=== PATIENT | male | born 1990 | race Caucasian/White ===

== ENCOUNTER 2017-04-21 21:53 | Inpatient (IN) | payer OTHER ==
[~2017-04-21] VITALS: Ht 167.6 cm; Wt 119.5 kg
[~2017-04-21 21:53] MED LIST: NO CURRENT MEDS
--- NOTE | 2017-04-21 22:42 | ERA ---
ER Documentation Chief Complaint Date/Time DATE: 04/21/17 TIME: 22:42 Chief Complaint palpitation HPI The patient is a 26-year-old male, presenting to the ER because he has intermittent palpitation for 1 day, worse tonight around 9 pm. He feels as if his heart was jumping out of his chest. He has similar symptoms previously, however it usually resolved by itself. He came to the ER around 10 PM when the nurse noted his heart rate was about 220. He was asked to bear down and he spontaneously converted to sinus tachycardia 120 bpm. He denies syncope, near syncope, neck pain, chest pain, dyspnea, abdominal pain, vomiting, dysuria, diarrhea. He does not smoke, drinks socially, smokes marijuana Past medical history/surgical history: None ROS All systems reviewed and are negative except as per history of present illness. Medications Home Meds Discontinued Reported Medications [No Current Meds] No Conflict Check 05/14/10 Allergies Allergies: Coded Allergies: No Known Drug Allergies (Unverified Allergy, Unknown, 04/22/17) PMhx/Soc History of Surgery: No Anesthesia Reaction: No Hx Neurological Disorder: No Hx Respiratory Disorders: No Hx Cardiac Disorders: No Hx Psychiatric Problems: No Hx Miscellaneous Medical Probl: No Hx Alcohol Use: No Hx Substance Use: No Hx Tobacco Use: No Smoking Status: Never smoker Physical Exam Vitals Vital Signs Date Time Temp Pulse Resp B/P Pulse Ox O2 Delivery O2 Flow Rate FiO2 04/22/17 04:44 88 20 128/88 96 Room Air 04/22/17 03:11 99.4 86 20 133/88 96 Room Air 04/22/17 02:26 104 20 135/92 96 Room Air 04/21/17 23:36 115 20 122/66 95 Room Air 04/21/17 22:36 126 20 123/66 95 Room Air 04/21/17 22:04 99.8 121 20 133/81 95 Physical Exam Const: No acute distress. Head: Atraumatic. Eyes: Normal Conjunctiva. ENT: Normal External Ears, Nose and Mouth. Neck: Full range of motion. No meningismus. Resp: Clear to auscultation bilaterally. Cardio: Regular tachycardic Abd: Soft, non distended, normal bowel sounds, non tender. Skin: No petechiae or rashes. Back: No midline or flank tenderness. Ext: No cyanosis, or edema. Neur: Awake and alert. No focal deficit Psych: Normal Mood and Affect. Result Diagram: 04/21/17234904/21/172349 Results 24 hrs Laboratory Tests Test 04/21/17 23:50 White Blood Count 10.710^3/ul Red Blood Count 6.3110^6/ul Hemoglobin 17.2g/dl Hematocrit 52.5% Mean Corpuscular Volume 83.2fl Mean Corpuscular Hemoglobin 27.3pg Mean Corpuscular Hemoglobin Concent 32.8g/dl Red Cell Distribution Width 12.8% Platelet Count 89607^3/UL Mean Platelet Volume 11.8fl Neutrophils % 67.9% Lymphocytes % 23.5% Monocytes % 6.4% Eosinophils % 0.8% Basophils % 0.7% Nucleated Red Blood Cells % 0.0/100WBC Neutrophils # (Manual) 710^3/ul Lymphocytes # 2.510^3/ul Monocytes # 0.710^3/ul Eosinophils # 0.110^3/ul Basophils # 0.110^3/ul Nucleated Red Blood Cells # 0.010^3/ul Prothrombin Time 12.3Sec Prothrombin Time Ratio 1.0 INR International Normalized Ratio 0.91 Activated Partial Thromboplast Time 27.8Sec Sodium Level 145mmol/L Potassium Level 3.6mmol/L Chloride Level 98mmol/L Carbon Dioxide Level 28mmol/L Anion Gap 23 Blood Urea Nitrogen 12mg/dl Creatinine 1.10mg/dl Glucose Level 104mg/dl Calcium Level 10.3mg/dl Troponin I < 0.012ng/ml Thyroid Stimulating Hormone (TSH) 1.570MIU/L Ethyl Alcohol Level < 10.0mg/dl Current Medications Medications (Trade) Dose Ordered Sig/Yanci Route PRN Reason Start Time Stop Time Status Last Admin Dose Admin Adenosine (Adenosine) 2 ml @ ud STK-MED ONCE .ROUTE 04/22/17 02:22 04/22/17 02:23 DC IV Flush (NS 3 ml) 3 ml PER PROTOCOL IV 04/22/17 04:30 Lorazepam (Ativan) 0.5 mg Q8H PRN PO ANXIETY 04/22/17 04:30 Ondansetron HCl (Zofran Inj) 4 mg Q6H PRN IV NAUSEA AND/OR VOMITING 04/22/17 04:30 Aspirin (Aspirin) 81 mg DAILY PO 04/22/17 09:00 Nitroglycerin (Nitroglycerin (Sl Tab) 0.4 Mg) 1 tab Q5M PRN SL CHEST PAIN 04/22/17 04:30 Acetaminophen (Tylenol Tab) 650 mg Q6H PRN PO PAIN LEVEL 1-3 OR FEVER 04/22/17 04:30 Morphine Sulfate (morphine) 2 mg Q4H PRN IV PAIN LEVEL 7-10 04/22/17 04:30 Enoxaparin Sodium (Lovenox) 40 mg DAILY SC 04/22/17 09:00 Procedures/[place] [address] Radiology Main Line: [phone] DIAGNOSTIC IMAGING REPORT Patient: FAITH BLANCO : 1990 Age: 26 Sex: M MR #: [id number] DOS: 04/21/17 2252 Ordering MD: ERASMO RALPH MD Location: E/R Room/Bed: PROCEDURE: XR Chest. CLINICAL INDICATION: Chest pain TECHNIQUE: Single AP portable chest. COMPARISON: No prior Chest x-ray FINDINGS: The cardiomediastinal silhouette is within normal limits of size. The lungs are clear without pleural effusion or focal consolidation. No pneumothorax. The osseous structures and soft tissues are unremarkable. IMPRESSION: 1. No evidence for active cardiopulmonary disease. RPTAT:AAJJ Physician Bobby Date Time Electronically viewed and signed by Physician Bobby on 04/21/2017 23:46 FUENTES/ CC: ERASMO RALPH MD MEDICAL MAKING DECISION: He remained stable emergency department until approximately 2:21 AM when his heart became tachycardic at about 220-230 bpm. When he immediately had a EKG done that show tachyarrhythmia at about 220 bpm. He was immediately asked to bear down by blowing into a 10 cc syringe that converted him to sinus tachycardia at 110 bpm around 2:23 AM. He feels much better and did not require any pharmacological intervention. 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 Infero-, lateral, anterior ST depression. Impression abnormal EKG The differential diagnoses considered include but are not limited to bradyarrhythmia, tachyarrhythmias, aortic outflow obstruction, neurogenic including subarachnoid hemorrhage, orthostatic hypotension and all of its causes , hypoglycemia, dysautonomia, medications, thyroid disease, drug-induced tachyarrhythmia Critical Care: Time: 35 minutes excluding all billable procedures. Treatments/Evaluations: Close monitoring and treatment of unstable vital signs, cardiorespiratory, and neurologic status, while maintaining tight balance of fluid, respiratory, and cardiac interventions.. Departure Diagnosis: Primary Impression: WPW (Vbykt-Eqxiylqrk-Enwgf syndrome) Condition: Critical Comments I discussed the findings with the patient. I discussed the patient with the on- call hospitalist Dr. Long at 3 AM who was made aware of the lab, the treatment, the patient condition. The patient is admitted to ICU The patient's blood pressure was elevated (>120/80) but appears stable without evidence of hypertension emergency or urgency. The patient was counseled about the risks of hypertension and urged to pursue outpatient monitoring and therapy within a week with their primary care physician. ERASMO RALPH MD Apr 21, 2017 22:42
--- NOTE | 2017-04-21 23:46 | RADRPT ---
PROCEDURE: XR Chest. CLINICAL INDICATION: Chest pain TECHNIQUE: Single AP portable chest. COMPARISON: No prior Chest x-ray FINDINGS: The cardiomediastinal silhouette is within normal limits of size. The lungs are clear without pleur al effusion or focal consolidation. No pneumothorax. The osseous structures and soft tissues are unr emarkable. IMPRESSION: 1. No evidence for active cardiopulmonary disease. RPTAT:AAJJ Reji Argueta Physician Date Time Electronically viewed and signed by Reji Argueta Physician on 04/21/2017 23:46 FUENTES/
[2017-04-22] VITALS (9 sets, daily range): BP systolic 125–147; BP diastolic 59–68; PULSE 76–97; RESP 16–21; TEMP 99.4; Ht 167.6 cm; Wt 119.5 kg
[2017-04-22 00:02] LABS: BASOPHIL # 0.1 10^3/ul (0.0-0.1); BASOPHILS % 0.7 % (0.0-2.0); EOSINOPHILS # 0.1 10^3/ul (0.0-0.5); EOSINOPHILS % 0.8 % (0.0-7.0); HEMATOCRIT 52.5 % (42.0-52.0); HEMOGLOBIN 17.2 g/dl (14.0-18.0); LYMPHOCYTES # 2.5 10^3/ul (0.8-2.9); LYMPHOCYTES % 23.5 % (15.0-51.0); MEAN CORPUSCULAR HEMOGLOBIN 27.3 pg (29.0-33.0); MEAN CORPUSCULAR HGB CONC 32.8 g/dl (32.0-37.0); MEAN CORPUSCULAR VOLUME 83.2 fl (82.0-101.0); MEAN PLATELET VOLUME 11.8 fl (7.4-10.4); MONOCYTE # 0.7 10^3/ul (0.3-0.9); MONOCYTES % 6.4 % (0.0-11.0); NEUTROPHILS % 67.9 % (39.0-77.0); PLATELET COUNT 331 10^3/UL (140-415); RED BLOOD COUNT 6.31 10^6/ul (4.70-6.10); RED CELL DISTRIBUTION WIDTH 12.8 % (11.5-14.5); WHITE BLOOD COUNT 10.7 10^3/ul (4.8-10.8)
[2017-04-22 00:29] LABS: ANION GAP 23 (8-16); BLOOD UREA NITROGEN 12 mg/dl (7-20); CALCIUM 10.3 mg/dl (8.4-10.2); CARBON DIOXIDE 28 mmol/L (21-31); CHLORIDE 98 mmol/L (97-110); GLUCOSE 104 mg/dl (70-220); POTASSIUM 3.6 mmol/L (3.5-5.1); SODIUM 145 mmol/L (135-144)
[2017-04-22 00:46] LABS: INR 0.91; PROTIME 12.3 Sec (12.2-14.2)
[2017-04-22 00:47] LABS: PARTIAL THROMBOPLASTIN TIME 27.8 Sec (25.0-35.0)
[2017-04-22 00:54] LABS: TROPONIN-I < 0.012 ng/ml (0.00-0.12)
[2017-04-22 01:57] LABS: ETHANOL < 10.0 mg/dl
[2017-04-22] MEDS ORDERED: ADENOSINE 2 ML ONE (02:22)
[2017-04-22] MEDS ORDERED: ACETAMINOPHEN 325 MG TAB PO PRN (04:30)
[2017-04-22] MEDS ORDERED: NACL 0.9% 3 ML SYG IV SCH (04:30)
[2017-04-22] MEDS ORDERED: ONDANSETRON 4 MG INJ IV PRN (04:30)
[2017-04-22] MEDS ORDERED: NITROGLYCERIN (SL) 0.4 MG TAB SL PRN (04:30)
[2017-04-22] MEDS ORDERED: LORAZEPAM 0.5 MG TAB PO PRN (04:30)
[2017-04-22] MEDS ORDERED: morphine 2 MG INJ IV PRN (04:30)
[2017-04-22 07:26] LABS: BASOPHIL # 0.1 10^3/ul (0.0-0.1); BASOPHILS % 0.6 % (0.0-2.0); EOSINOPHILS # 0.2 10^3/ul (0.0-0.5); EOSINOPHILS % 1.8 % (0.0-7.0); HEMATOCRIT 48.9 % (42.0-52.0); HEMOGLOBIN 16.1 g/dl (14.0-18.0); LYMPHOCYTES # 2.7 10^3/ul (0.8-2.9); LYMPHOCYTES % 26.7 % (15.0-51.0); MEAN CORPUSCULAR HEMOGLOBIN 27.3 pg (29.0-33.0); MEAN CORPUSCULAR HGB CONC 32.9 g/dl (32.0-37.0); MEAN PLATELET VOLUME 11.3 fl (7.4-10.4); MONOCYTE # 0.9 10^3/ul (0.3-0.9); MONOCYTES % 8.7 % (0.0-11.0); NEUTROPHILS % 61.6 % (39.0-77.0); PLATELET COUNT 315 10^3/UL (140-415); RED BLOOD COUNT 5.89 10^6/ul (4.70-6.10); RED CELL DISTRIBUTION WIDTH 13.2 % (11.5-14.5); WHITE BLOOD COUNT 9.9 10^3/ul (4.8-10.8)
--- NOTE | 2017-04-22 07:54 | HP ---
Date/Time of Note Date/Time of Note DATE: 04/22/17 TIME: 07:47 Assessment/Plan VTE Prophylaxis VTE Prophylaxis Intervention: heparin Lines/Catheters IV Catheter Type (from [facility]): Peripheral IV Assessment/Plan Assessment/Plan 1. WPW (Pskhd-Ngvvrafwd-Ehoik syndrome) -Patient presented to the ER with heart rates as high as 231. He was asked to bear down by blowing into a 10 cc syringe that converted him to sinus tachycardia at 110 bpm. -We will continue telemetry monitoring. -Check electrolytes in the a.m. as well as thyroid profile -Check urine toxicology -Cardiology consult will be placed 2. Mild hypernatremia -Monitor for now HPI/ROS Admit Date/Time Admit Date/Time Apr 22, 2017 at 04:15 Hx of Present Illness This is a 26-year-old male with no significant past medical history who presented to the emergency department complaining of palpitation 1 day. He also reported associated mild shortness of breath. Denied chest pain. He also denied fever/chills, nausea/vomiting or abdominal pain. When he presented to the ER, heart rate was as high as 230 bpm. EKG showed tachyarrhythmia at about 220 bpm. According to ER report, he was immediately asked to bear down by blowing into a 10 cc syringe that converted him to sinus tachycardia at 110 bpm. He felt much better and did not require any pharmacological intervention. . PMH/Family/Social Past Medical History Medical History: no pertinent history Past Surgical History Past Surgical Hx: no surgical history Social History Alcohol Use: none Smoking Status: Never smoker Drug Use: none Exam/Review of Systems Vital Signs Vitals Vital Signs Date Time Temp Pulse Resp B/P Pulse Ox O2 Delivery O2 Flow Rate FiO2 04/22/17 07:45 97.8 83 16 138/66 97 04/22/17 04:44 Room Air Exam Constitutional: alert, oriented, well developed Head: atraumatic, normocephalic Eyes: EOMI, PERRL Respiratory: clear to auscultation, normal air movement Cardiovascular: nl pulses, regular rate and rhythm Gastrointestinal: non-tender, soft Extremities: normal pulses Labs Result Diagram: 04/22/17 0643 04/21/17 5670 Medications Medications Current Medications Lorazepam (Ativan) 0.5 mg Q8H PRN PO ANXIETY; Start 04/22/17 at 04:30 Ondansetron HCl (Zofran Inj) 4 mg Q6H PRN IV NAUSEA AND/OR VOMITING; Start at 04:30 Aspirin (Aspirin) 81 mg DAILY PO ; Start 04/22/17 at 09:00 Nitroglycerin (Nitroglycerin (Sl Tab) 0.4 Mg) 1 tab Q5M PRN SL CHEST PAIN; Start 04/22/17 at 04:30 Acetaminophen (Tylenol Tab) 650 mg Q6H PRN PO PAIN LEVEL 1-3 OR FEVER; Start at 04:30 Morphine Sulfate (morphine) 2 mg Q4H PRN IV PAIN LEVEL 7-10; Start 04/22/17 at 04:30 Enoxaparin Sodium (Lovenox) 40 mg DAILY SC ; Start 04/22/17 at 09:00 GUILLERMO GEORGE MD Apr 22, 2017 07:54
[2017-04-22 07:58] LABS: ALBUMIN 4.6 g/dl (3.3-4.9); ALBUMIN/GLOBULIN RATIO 1.31; BILIRUBIN,INDIRECT 0.4 mg/dl (0-1.1); BILIRUBIN,TOTAL 0.4 mg/dl (0.2-1.3); CALCIUM 10.1 mg/dl (8.4-10.2); CREATININE 0.98 mg/dl (0.61-1.24); TOTAL PROTEIN 8.1 g/dl (6.1-8.1)
[2017-04-22 08:04] LABS: CK-MB 3.03 ng/ml (0.0-2.4)
[2017-04-22 08:06] LABS: TROPONIN-I 0.183 ng/ml (0.00-0.12)
[2017-04-22 08:27] LABS: THYROID STIMULATING HORMONE 2.79 MIU/L (0.465-4.680)
[2017-04-22] MEDS ORDERED: ENOXAPARIN 40 MG/0.4 ML SYG SC SCH (09:00)
[2017-04-22] MEDS ORDERED: ASPIRIN 81 MG TAB PO SCH (09:00)
[2017-04-22 10:53] LABS: BARBITURATES Negative (NEGATIVE); BENZODIAZEPINES Negative (NEGATIVE); CANNABINOIDS Positive (NEGATIVE); COCAINE Negative (NEGATIVE); OPIATES Negative (NEGATIVE)
--- NOTE | 2017-04-22 12:24 | PN ---
Date/Time of Note Date/Time of Note DATE: 04/22/17 TIME: 12:21 Assessment/Plan VTE Prophylaxis VTE Prophylaxis Intervention: LMWH Lines/Catheters IV [facility]from [facility] [place] Assessment/Plan Chief Complaint/Hosp Course Assessment/Plan: 26-year-old male with palpitations 1 day, tachyarrhythmia possibly secondary to WPW. 1. WPW (Ihxly-Uteeldrpb-Lbjts syndrome)- -Patient presented to the ER with heart rates as high as 231. He was asked to bear down by blowing into a 10 cc syringe that converted him to sinus tachycardia at 110 bpm. Presently in normal sinus rhythm. -We will continue telemetry monitoring. Follow electrolytes in the a.m. as well as thyroid profile Follow-up urine toxicology -Cardiology consult is also pending 2. Mild hypernatremia -still slightly present, patient asymptomatic -Monitor for now 3. Type 2 diabetes: A1c is 6.7, start sliding scale insulin 4. Elevated troponin: First 1 was negative, second 1 is slightly positive. Rule out ACS, versus type II event. Patient denies any present chest pain. -Follow-up cardiology recommendations Problems: Subjective 24 Hr Interval Summary Free Text/Dictation Patient denies any present chest pain. No acute events overnight. Exam/Review of Systems Vital Signs Vitals Vital Signs Date Time Temp Pulse Resp B/P Pulse Ox O2 Delivery O2 Flow Rate FiO2 04/22/17 08:37 90 04/22/17 07:45 97.8 16 138/66 97 04/22/17 04:44 Room Air Exam Constitutional: alert, oriented, well developed Head: atraumatic, normocephalic Eyes: EOMI, PERRL Respiratory: clear to auscultation, normal air movement Cardiovascular: nl pulses, regular rate and rhythm Gastrointestinal: non-tender, soft Extremities: normal pulses Results Result Diagram: 04/22/17 0643 04/22/17 0643 Results 24 hrs Laboratory Tests Test 04/21/17 23:50 04/22/17 06:43 04/22/17 08:20 White Blood Count 10.7 9.9 Red Blood Count 6.31 H 5.89 Hemoglobin 17.2 16.1 Hematocrit 52.5 H 48.9 Mean Corpuscular Volume 83.2 83.0 Mean Corpuscular Hemoglobin 27.3 L 27.3 L Mean Corpuscular Hemoglobin Concent 32.8 32.9 Red Cell Distribution Width 12.8 13.2 Platelet Count 331 315 Mean Platelet Volume 11.8 H 11.3 H Neutrophils % 67.9 61.6 Lymphocytes % 23.5 26.7 Monocytes % 6.4 8.7 Eosinophils % 0.8 1.8 Basophils % 0.7 0.6 Nucleated Red Blood Cells % 0.0 0.0 Neutrophils # (Manual) 7 6 Lymphocytes # 2.5 2.7 Monocytes # 0.7 0.9 Eosinophils # 0.1 0.2 Basophils # 0.1 0.1 Nucleated Red Blood Cells # 0.0 0.0 Prothrombin Time 12.3 Prothrombin Time Ratio 1.0 INR International Normalized Ratio 0.91 Activated Partial Thromboplast Time 27.8 Sodium Level 145 H 145 H Potassium Level 3.6 4.0 Chloride Level 98 98 Carbon Dioxide Level 28 30 Anion Gap 23 H 21 H Blood Urea Nitrogen 12 13 Creatinine 1.10 0.98 Glucose Level 104 106 Calcium Level 10.3 H 10.1 Troponin I < 0.012 0.183 *H Thyroid Stimulating Hormone (TSH) 1.570 2.790 Ethyl Alcohol Level < 10.0 Hemoglobin A1c 6.7 H Magnesium Level 2.0 Total Bilirubin 0.4 Direct Bilirubin 0.00 Indirect Bilirubin 0.4 Aspartate Amino Transf (AST/SGOT) 28 Alanine Aminotransferase (ALT/SGPT) 52 Alkaline Phosphatase 65 Creatine Kinase 182 Creatine Kinase Index 1.7 Creatinine Kinase MB (Mass) 3.03 H Total Protein 8.1 Albumin 4.6 Globulin 3.50 H Albumin/Globulin Ratio 1.31 Triglycerides Level 411 H Cholesterol Level 206 H LDL Cholesterol, Calculated 90 HDL Cholesterol 34 Cholesterol/HDL Ratio 6.0 Urine Opiates Screen Negative Urine Barbiturates Negative Urine Amphetamines Screen Negative Urine Benzodiazepines Screen Negative Urine Cocaine Screen Negative Urine Cannabinoids Positive Medications Medications Current Medications Lorazepam (Ativan) 0.5 mg Q8H PRN PO ANXIETY; Start 04/22/17 at 04:30 Ondansetron HCl (Zofran Inj) 4 mg Q6H PRN IV NAUSEA AND/OR VOMITING; Start at 04:30 Aspirin (Aspirin) 81 mg DAILY PO Last administered on 04/22/17t 08:09; Admin Dose 81 MG; Start 04/22/17 at 09:00 Nitroglycerin (Nitroglycerin (Sl Tab) 0.4 Mg) 1 tab Q5M PRN SL CHEST PAIN; Start 04/22/17 at 04:30 Acetaminophen (Tylenol Tab) 650 mg Q6H PRN PO PAIN LEVEL 1-3 OR FEVER; Start at 04:30 Morphine Sulfate (morphine) 2 mg Q4H PRN IV PAIN LEVEL 7-10; Start 04/22/17 at 04:30 Enoxaparin Sodium (Lovenox) 40 mg DAILY SC Last administered on 04/22/17t 08:10 ; Admin Dose 40 MG; Start 04/22/17 at 09:00 LINNEA RIOJAS Apr 22, 2017 12:24
[2017-04-22] MEDS ORDERED: INSULIN ASPART [NOVOLOG] 3 ML PEN SC SCH (12:30)
[2017-04-22] MEDS ORDERED: GLUCOSE GEL 15 GRAM TUBE BUCCAL PRN (13:00)
[2017-04-22] MEDS ORDERED: GLUCOSE GEL 15 GRAM TUBE PO PRN ×2 (13:00)
[2017-04-22] MEDS ORDERED: DEXTROSE 50% 50 ML SYRINGE IV PRN ×2 (13:00)
[2017-04-22] MEDS ORDERED: GLUCAGON 1 MG INJ IM PRN (13:00)
[2017-04-22 13:07] LABS: TROPONIN-I 0.119 ng/ml (0.00-0.12)
[2017-04-22 13:09] LABS: CK-MB 3.31 ng/ml (0.0-2.4)
--- NOTE | 2017-04-22 13:53 | RADRPT ---
Vent Rate: 88 bpm RR Interval: 0 msec MD Interval: 124 msec QRS Duration: 100 msec QT Interval: 374 msec QTC Interval: 452 msec P-R-T [place]: 43 - 73 - -7 degrees Normal sinus rhythm Nonspecific ST and T wave abnormality Abnormal ECG Electronically Signed By: Liam Mccall [id number]
--- NOTE | 2017-04-22 13:56 | RADRPT ---
Echocardiogram Report Patient Name: FAITH BLANCO Gender: Male Date: 1990 Study Date: 22-Apr-2017 Sprinkler Fitter: Myah [facility] Location: 5565 Ref. Physician: GUILLERMO GEORGE Quality: Technically Difficult Study Procedures: Transthoracic echocardiogram with complete 2D, M-Mode, and doppler examination. Indications: WPW. 2D/M Mode Doppler Measurement Value Normal Ranges Measurement Value Normal Ranges LVIDd 2D 4.6 3.5 - 5.6 cm AV Peak Fadi 1.1 m/sec LVIDs 2D 3.3 2.1 - 4.1 cm AV Peak PG 4.6 mmHg LVPWd 2D 1.2 0.6 - 1.1 cm LVOT Peak Fadi 0.9 m/sec IVSd 2D 1.1 0.6 - 1.1 cm LVOT Peak PG 3.0 mmHg AoR Diam 2D 2.8 2.0 - 3.7 cm MV E Peak Fadi 0.6 m/sec EDV 2D 99.3 cm3 MV A Peak Fadi 0.5 m/sec ESV 2D 35.9 cm3 MV E/A 1.2 MV Decel Time 150 msec MV Decel Mcintosh 4 MV E/A 1.2 Findings Left Ventricle: Normal left ventricular systolic function. Normal left ventricular cavity size. Mild concentric left ventricular hypertrophy. Ejection fraction is visually estimated at 55 %. Tissue Doppler/Mitral Doppler indices are within normal limits. Right Ventricle: Normal right ventricular size. Normal right ventricular systolic function. Left Atrium: The left atrium is normal in size. Right Atrium: The right atrium is normal in size. Mitral Valve: Mild mitral leaflet calcification. Mild mitral annular calcification. Trace mitral regurgitation. Aortic Valve: Normal appearance of the aortic valve. No significant aortic stenosis or insufficiency. Tricuspid Valve: Normal appearance and function of the tricuspid valve with trace physiologic regurgitation. Pulmonic Valve: Pulmonic valve not well visualized. There is trace pulmonic regurgitation. Pericardium: Normal pericardium with no significant pericardial effusion. Aorta: Normal aortic root. IVC: Normal size and normal respiratory collapse consistent with normal right atrial pressure. Conclusions 1.Normal left ventricular systolic function. Normal left ventricular cavity size. Mild concentric left ventricular hypertrophy. Ejection fraction is visually estimated at 55 %. Tissue Doppler/Mitral Doppler indices are within normal limits. 2.Normal right ventricular size. Normal right ventricular systolic function. 3.The left atrium is normal in size. 4.The right atrium is normal in size. 5.No significant valvular stenosis or regurgitation seen. 6.Normal pericardium with no significant pericardial effusion. Electronically Signed By: Lamin Cabral 22-Apr-2017 13:55:36 -0700 Patient Name: FAITH BLANCO Study Date: 22-Apr-2017 [id number]
--- NOTE | 2017-04-22 16:16 | CONS ---
Date/Time of Note Date/Time of Note DATE: 04/22/17 TIME: 16:10 Assessment/Plan Assessment/Plan Additional Assessment/Plan WPW with tachycardia Preserved ejection fraction Obesity -Patient with tachycardia and evidence of WPW. Urine toxicology negative for any stimulants and only positive for marijuana. Patient has been having on and off symptoms since childhood. Troponin elevation is minimally elevated and trending down, this is likely secondary to tachycardia. Given the episodes are infrequent, I am hesitant of starting the patient on AV jewell blocking agents at the current time given this could exacerbate his tachycardia. Patient will need electrophysiology evaluation as an outpatient for ablative treatment. Patient also would benefit from weight loss. Patient does not think he has insurance, that is the case, recommended follow-up at [facility]. Consultation Date/Type/Reason Admit Date/Time Apr 22, 2017 at 04:15 Type of Consultation: cv Reason for Consultation Palpitations Hx of Present Illness This is a 26-year-old male with no significant known past medical history presents with palpitations yesterday. Patient states he has been having off-and -on palpitations since childhood. It can happen approximate 1-3 times a year. Unclear what is exacerbating factor. Yesterday, patient with palpitations at rest. Symptoms went on for over an hour. The last 20 or 30 minutes, patient also with chest pain. Because of symptoms, patient came to emergency room for evaluation and care. Patient was told to bear down in the emergency room and to Valsalva and he converted to sinus rhythm. He otherwise denies exertional chest pain or shortness of breath, dizziness or syncope. He does admit to progressive weight gain and he does think he has sleep apnea. He denies any use of any stimulants but does use marijuana off and on over the past 6 years. 12 point review of systems was performed with all pertinent positives and negatives mentioned above and all else is negative Past Medical History Medical History: no pertinent history Past Surgical History Past Surgical Hx: no surgical history Social History Alcohol Use: none Smoking Status: Never smoker Drug Use: marijuana Other Social History Works at [employer] Exam/Review of Systems Vital Signs Vitals Vital Signs Date Time Temp Pulse Resp B/P Pulse Ox O2 Delivery O2 Flow Rate FiO2 04/22/17 15:29 98.3 102 16 147/59 97 04/22/17 04:44 Room Air Exam No apparent distress Constitutional: alert, obese, oriented Head: normocephalic Neck: supple Respiratory: clear to auscultation, normal air movement Cardiovascular: other (S1-S2 heard, no murmurs appreciated), regular rate and rhythm Gastrointestinal: bowel sounds, non-tender, soft Extremities: other (No edema) Results Result Diagram: 04/22/17 0643 04/22/17 0643 Results 24 hrs Laboratory Tests Test 04/21/17 23:50 04/22/17 06:43 04/22/17 08:20 04/22/17 12:04 White Blood Count 10.7 9.9 Red Blood Count 6.31 H 5.89 Hemoglobin 17.2 16.1 Hematocrit 52.5 H 48.9 Mean Corpuscular Volume 83.2 83.0 Mean Corpuscular Hemoglobin 27.3 L 27.3 L Mean Corpuscular Hemoglobin Concent 32.8 32.9 Red Cell Distribution Width 12.8 13.2 Platelet Count 331 315 Mean Platelet Volume 11.8 H 11.3 H Neutrophils % 67.9 61.6 Lymphocytes % 23.5 26.7 Monocytes % 6.4 8.7 Eosinophils % 0.8 1.8 Basophils % 0.7 0.6 Nucleated Red Blood Cells % 0.0 0.0 Neutrophils # (Manual) 7 6 Lymphocytes # 2.5 2.7 Monocytes # 0.7 0.9 Eosinophils # 0.1 0.2 Basophils # 0.1 0.1 Nucleated Red Blood Cells # 0.0 0.0 Prothrombin Time 12.3 Prothrombin Time Ratio 1.0 INR International Normalized Ratio 0.91 Activated Partial Thromboplast Time 27.8 Sodium Level 145 H 145 H Potassium Level 3.6 4.0 Chloride Level 98 98 Carbon Dioxide Level 28 30 Anion Gap 23 H 21 H Blood Urea Nitrogen 12 13 Creatinine 1.10 0.98 Glucose Level 104 106 Calcium Level 10.3 H 10.1 Troponin I < 0.012 0.183 *H 0.119 Thyroid Stimulating Hormone (TSH) 1.570 2.790 Ethyl Alcohol Level < 10.0 Hemoglobin A1c 6.7 H Magnesium Level 2.0 Total Bilirubin 0.4 Direct Bilirubin 0.00 Indirect Bilirubin 0.4 Aspartate Amino Transf (AST/SGOT) 28 Alanine Aminotransferase (ALT/SGPT) 52 Alkaline Phosphatase 65 Creatine Kinase 182 185 Creatine Kinase Index 1.7 1.8 Creatinine Kinase MB (Mass) 3.03 H 3.31 H Total Protein 8.1 Albumin 4.6 Globulin 3.50 H Albumin/Globulin Ratio 1.31 Triglycerides Level 411 H Cholesterol Level 206 H LDL Cholesterol, Calculated 90 HDL Cholesterol 34 Cholesterol/HDL Ratio 6.0 Urine Opiates Screen Negative Urine Barbiturates Negative Urine Amphetamines Screen Negative Urine Benzodiazepines Screen Negative Urine Cocaine Screen Negative Urine Cannabinoids Positive Test 04/22/17 13:07 Bedside Glucose 102 Medications Medications Current Medications Lorazepam (Ativan) 0.5 mg Q8H PRN PO ANXIETY; Start 04/22/17 at 04:30 Ondansetron HCl (Zofran Inj) 4 mg Q6H PRN IV NAUSEA AND/OR VOMITING; Start at 04:30 Aspirin (Aspirin) 81 mg DAILY PO Last administered on 04/22/17 08:09; Admin Dose 81 MG; Start 04/22/17 at 09:00 Nitroglycerin (Nitroglycerin (Sl Tab) 0.4 Mg) 1 tab Q5M PRN SL CHEST PAIN; Start 04/22/17 at 04:30 Acetaminophen (Tylenol Tab) 650 mg Q6H PRN PO PAIN LEVEL 1-3 OR FEVER; Start at 04:30 Morphine Sulfate (morphine) 2 mg Q4H PRN IV PAIN LEVEL 7-10; Start 04/22/17 at 04:30 Enoxaparin Sodium (Lovenox) 40 mg DAILY SC Last administered on 04/22/17 08:10 ; Admin Dose 40 MG; Start 04/22/17 at 09:00 Diagnostic Test (Pha) (Accu-Chek) 1 ea 02 XX ; Start 04/23/17 at 02:00 Diagnostic Test (Pha) (Accu-Chek) 1 ea 02 XX ; Start 04/23/17 at 02:00 Miscellaneous Information 1 ea NOTE XX ; Start 04/22/17 at 13:00 Glucose (Glutose) 15 gm Q15M PRN PO DECREASED GLUCOSE; Start 04/22/17 at 13:00 Glucose (Glutose) 22.5 gm Q15M PRN PO DECREASED GLUCOSE; Start 04/22/17 at 13: 00 Dextrose (D50w Syringe) 25 ml Q15M PRN IV DECREASED GLUCOSE; Start 04/22/17 at 13:00 Dextrose (D50w Syringe) 50 ml Q15M PRN IV DECREASED GLUCOSE; Start 04/22/17 at 13:00 Glucagon (Glucagen) 1 mg Q15M PRN IM DECREASED GLUCOSE; Start 04/22/17 at 13:00 Glucose (Glutose) 15 gm Q15M PRN BUCCAL DECREASED GLUCOSE; Start 04/22/17 at 13 :00 Procedures Procedures Initial ECG done yesterday demonstrates SVT at 222 bpm, nonspecific ST2 abnormalities, QRS 88 ms ECG done this morning at 934 and straight sinus rhythm at 80 bpm, QRS 100 ms, there are delta waves, nonspecific T-wave abnormalities Lamin Cabral DO Apr 22, 2017 16:16
--- NOTE | 2017-04-22 16:27 | PDOCDIS ---
Discharge Instructions CONDITION Patient Condition: Stable HOME CARE INSTRUCTIONS: Diet Instructions: Low Fat /Cholesterol ACTIVITY: Activity Restrictions: Slowly Increase Activity FOLLOW UP/APPOINTMENTS Follow-up Plan As instructed by the cardiology team, please [facility] for further evaluation of your heart arrhythmia. If you experience any chest pain or shortness of breath, please go to the ER, or call 911. LINNEA RIOJAS Apr 22, 2017 16:27
--- NOTE | 2017-04-22 16:33 | DS ---
Date/Time of Note Date/Time of Note DATE: 04/22/17 TIME: 16:29 Discharge Summary Admission/Discharge Info Admit Date/Time Apr 22, 2017 at 04:15 Discharge Date/Time Discharge Diagnosis 1. Palpitations: Secondary to Cxqxk-Svqepeeqj-Lygnu syndrome 2. Obesity: Counseled on weight loss cessation 3. Marijuana use: Counseled on cessation 4. Elevated A1c of 6.7: Recommend repeat test to confirm diagnosis of type 2 diabetes Patient Condition: Stable Hx of Present Illness Hospital Course 26-year-old male with no significant known past medical history presents with palpitations yesterday. Patient states he has been having off-and-on palpitations since childhood. It can happen approximate 1-3 times a year. Unclear what is exacerbating factor. Patient had palpitations at rest at home. Symptoms went on for over an hour. The last 20 or 30 minutes, patient also with chest pain. Because of symptoms, patient came to emergency room for evaluation and care. Patient was told to bear down in the emergency room and to Valsalva and he converted to sinus rhythm. He otherwise denies exertional chest pain or shortness of breath, dizziness or syncope. He does admit to progressive weight gain and he does think he has sleep apnea. He denies any use of any stimulants but does use marijuana off and on over the past 6 years. The patient was admitted to telemetry floor, seen by cardiology team. Before that in the emergency room he was instructed to blow into a 10 cc syringe, which helped, presumably, to help him convert to normal sinus rhythm. He had less chest pain symptoms on admission, no further arrhythmias. 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 He is recommended to avoid AV jewell blocking agents. His troponins trended down by the time of discharge to normal range, he was able to ambulate, tolerated p.o. diet, and as stated above he had no further episodes of heart irregularities or palpitations. It was recommended by cardiology and the patient follow-up at [facility] facility for possible ablation consideration, given the fact that he appears to have no insurance, and was given strict return precautions in the event he develops any further palpitations or chest pain or shortness of breath. Home Meds Discontinued Reported Medications [No Current Meds] No Conflict Check 05/14/10 Primary Care Provider Not On Staff Doctor Time spent on discharge: > 30 minutes Pending Labs Laboratory Tests Test 04/21/17 23:50 04/22/17 06:43 04/22/17 08:20 04/22/17 12:04 White Blood Count 10.710^3/ul (4.8-10.8) 9.910^3/ul (4.8-10.8) Red Blood Count 6.3110^6/ul (4.70-6.10) 5.8910^6/ul (4.70-6.10) Hemoglobin 17.2g/dl (14.0-18.0) 16.1g/dl (14.0-18.0) Hematocrit 52.5% (42.0-52.0) 48.9% (42.0-52.0) Mean Corpuscular Volume 83.2fl (82.0-101.0) 83.0fl (82.0-101.0) Mean Corpuscular Hemoglobin 27.3pg (29.0-33.0) 27.3pg (29.0-33.0) Mean Corpuscular Hemoglobin Concent 32.8g/dl (32.0-37.0) 32.9g/dl (32.0-37.0) Red Cell Distribution Width 12.8% (11.5-14.5) 13.2% (11.5-14.5) Platelet Count 97190^3/UL (140-415) 50094^3/UL (140-415) Mean Platelet Volume 11.8fl (7.4-10.4) 11.3fl (7.4-10.4) Neutrophils % 67.9% (39.0-77.0) 61.6% (39.0-77.0) Lymphocytes % 23.5% (15.0-51.0) 26.7% (15.0-51.0) Monocytes % 6.4% (0.0-11.0) 8.7% (0.0-11.0) Eosinophils % 0.8% (0.0-7.0) 1.8% (0.0-7.0) Basophils % 0.7% (0.0-2.0) 0.6% (0.0-2.0) Nucleated Red Blood Cells % 0.0/100WBC (0.0-0.0) 0.0/100WBC (0.0-0.0) Neutrophils # (Manual) 710^3/ul (1.7-7.5) 610^3/ul (1.7-7.5) Lymphocytes # 2.510^3/ul (0.8-2.9) 2.710^3/ul (0.8-2.9) Monocytes # 0.710^3/ul (0.3-0.9) 0.910^3/ul (0.3-0.9) Eosinophils # 0.110^3/ul (0.0-0.5) 0.210^3/ul (0.0-0.5) Basophils # 0.110^3/ul (0.0-0.1) 0.110^3/ul (0.0-0.1) Nucleated Red Blood Cells # 0.010^3/ul (0.0-0.0) 0.010^3/ul (0.0-0.0) Prothrombin Time 12.3Sec (12.2-14.2) Prothrombin Time Ratio 1.0 INR International Normalized Ratio 0.91 Activated Partial Thromboplast Time 27.8Sec (25.0-35.0) Sodium Level 145mmol/L (135-144) 145mmol/L (135-144) Potassium Level 3.6mmol/L (3.5-5.1) 4.0mmol/L (3.5-5.1) Chloride Level 98mmol/L (97-110) 98mmol/L (97-110) Carbon Dioxide Level 28mmol/L (21-31) 30mmol/L (21-31) Anion Gap 23 (8-16) 21 (8-16) Blood Urea Nitrogen 12mg/dl (7-20) 13mg/dl (7-20) Creatinine 1.10mg/dl (0.61-1.24) 0.98mg/dl (0.61-1.24) Glucose Level 104mg/dl (70-220) 106mg/dl (70-220) Calcium Level 10.3mg/dl (8.4-10.2) 10.1mg/dl (8.4-10.2) Troponin I < 0.012ng/ml (0.00-0.12) 0.183ng/ml (0.00-0.12) 0.119ng/ml (0.00-0.12) Thyroid Stimulating Hormone (TSH) 1.570MIU/L (0.465-4.680) 2.790MIU/L (0.465-4.680) Ethyl Alcohol Level < 10.0mg/dl Hemoglobin A1c 6.7% (0-5.9) Magnesium Level 2.0mg/dl (1.7-2.5) Total Bilirubin 0.4mg/dl (0.2-1.3) Direct Bilirubin 0.00mg/dl (0.00-0.20) Indirect Bilirubin 0.4mg/dl (0-1.1) Aspartate Amino Transf (AST/SGOT) 28IU/L (15-46) Alanine Aminotransferase (ALT/SGPT) 52IU/L (13-69) Alkaline Phosphatase 65IU/L (42-121) Creatine Kinase 182IU/L (23-200) 185IU/L (23-200) Creatine Kinase Index 1.7 1.8 Creatinine Kinase MB (Mass) 3.03ng/ml (0.0-2.4) 3.31ng/ml (0.0-2.4) Total Protein 8.1g/dl (6.1-8.1) Albumin 4.6g/dl (3.3-4.9) Globulin 3.50g/dl (1.3-3.2) Albumin/Globulin Ratio 1.31 Triglycerides Level 411mg/dl (0-149) Cholesterol Level 206mg/dl (100-200) LDL Cholesterol, Calculated 90mg/dl HDL Cholesterol 34mg/dl (30-63) Cholesterol/HDL Ratio 6.0RATIO Urine Opiates Screen Negative (NEGATIVE) Urine Barbiturates Negative (NEGATIVE) Urine Amphetamines Screen Negative (NEGATIVE) Urine Benzodiazepines Screen Negative (NEGATIVE) Urine Cocaine Screen Negative (NEGATIVE) Urine Cannabinoids Positive (NEGATIVE) Test 04/22/17 13:07 Bedside Glucose 102mg/dL (70-220) LINNEA RIOJAS Apr 22, 2017 16:33
[2017-04-23] MEDS ORDERED: ACCU-CHEK XX SCH ×2 (02:00)
== END 2017-04-22 16:51 | disposition home or self-care (01) | DRG 309 ==
LOC: E/R 21:53 → MS4 04-22 04:15
PROVIDERS: ADMIT Internal Medicine; ATTEND Internal Medicine
DX: I45.6 Pre-excitation syndrome (principal); Z68.41 Body mass index [BMI] 40.0-44.9, adult; E87.0 Hyperosmolality and hypernatremia; R00.2 Palpitations; E66.9 Obesity, unspecified; F12.10 Cannabis abuse, uncomplicated; E11.9 Type 2 diabetes mellitus without complications
CPT/HCPCS: 36415; 71010; 80048; 80053; 80061; 80306; 80307; 82550; 82553; 82962; 83036; 83735; 84443; 84484; 85025; 85610; 85730; 93005; 93306; J0153; J1650; J1815